=== PATIENT | male | born 1960 | race Caucasian/White ===

== ENCOUNTER 2020-06-01 09:32 | Emergency (ER) | payer BC ==
[2020-06-01 09:40] VITALS: BP 140/84; PULSE 88; TEMP 99.2; BMI 31.1
--- OUTSIDE RECORDS SUMMARY | 2020-06-01 09:40 | XMS ---
:1960 Author Organization [facility] Name Relationship Address Phone [employer] [facility] [place] [address] [address] [place] [address] Re-disclosure Warning The records that you are about to access may contain information from federally- assisted alcohol or drug abuse programs. If such information is present, then the following federally mandated warning applies: This information has been disclosed to you from records protected by federal confidentiality rules (42 CFR part 2). The federal rules prohibit you from making any further disclosure of this information unless further disclosure is expressly permitted by the written consent of the person to whom it pertains or as otherwise permitted by 42 CFR part 2. A general authorization for the release of medical or other information is NOT sufficient for this purpose. The Federal rules restrict any use of the information to criminally investigate or prosecute any alcohol or drug abuse patient.The records that you are about to access may contain highly sensitive health information, the redisclosure of which is protected by Article 27-F of the [facility] Public Health law. If you continue you may haveaccess to information: Regarding HIV / AIDS; Provided by facilities licensed or operated by the [facility] Office of Mental Health; or Provided by the [facility] Office for People With Developmental Disabilities. If such information is present, then the following [facility] mandated warning applies: This information has been disclosed to you from confidential records which are protected by state law. State law prohibits you from making any further disclosure of this information without the specific written consent of the person to whom it pertains, or as otherwise permitted by law. Any unauthorized further disclosure in violation of state law may result in a fine or [place] [facility] sentence or both. A general authorization for the release of medical or other information is NOT sufficient authorization for further disclosure. Insurance Providers Payer name Policy type / Policy ID Covered Covered libertarian's Policy Plan Coverage type libertarian ID relationship to [employer] Information [employer] PPO [id number] SP [id number] Results ID Date Data Source [id number] 12/31/2019 10:50:00 AM EDT [facility] Name Value Range Interpretation Description Data Sup porting Code Source(s) Document(s ) 2019 Novel [facility] Coronavirus RNA Interpretation Unspecified Specimen Qualitative UMAIR Probe Detection This lab was ordered by [facility] and reported by [facility]. ID Date Data Source [id number] 11/26/2019 12:00:00 AM EDT [facility] Name Value Range Interpretation Code Description Data Chantell rce(s) Supporting Document(s ) 2019-nCoV [facility] RNA XXX UMAIR+probe- Imp This lab was ordered by [facility] and reported by [employer] [facility] Procedure
--- NOTE | 2020-06-01 09:52 | PDOC ---
History of Present Illness - General Chief Complaint: Foreign Body (FB) Stated Complaint: COTTON FRAGMENT IN RIGHT EAR Time Seen by Provider: 06/01/20 09:41 History Source: Patient Exam Limitations: No Limitations - History of Present Illness Initial Comments: 06/01/20 09:46 60 yo M p/w foreign body sensation in his R ear. Was using a qtip to clean his ears this morning and when he pulled the qtip out of the R ear he noticed the cotton tip was missing. Denies ear pain. States sounds are a little dull on that side but otherwise hearing is intact. Denies drainage from the ear or bleeding. No other complaints. Past History - Medical History Allergies/Adverse Reactions: Allergies Allergy/AdvReac Type Severity Reaction Status Date / Time wheat Allergy Severe Nausea Verified 06/01/20 09:49 No Known Drug Allergies Allergy Verified 06/01/20 09:49 Home Medications: Ambulatory Orders Allopurinol [Zyloprim -] 300 mg PO DAILY 09/02/14 Lipase/Protease/Amylase [Pancrelipase 5,000 Dr Capsule -] 1 each PO TID 09/02/14 Amlodipine Besylate [Norvasc -] 10 mg PO DAILY 06/01/20 Colestipol HCl 1 gm PO BID 06/01/20 Ezetimibe [Zetia] 10 mg PO TUSA 06/01/20 Hydrochlorothiazide 12.5 mg PO MOFR 06/01/20 Icosapent Ethyl [Vascepa] 1 gm PO BID 06/01/20 Levothyroxine [Synthroid -] 150 mcg PO DAILY 06/01/20 Metformin HCl [Glucophage] 500 mg PO BID 06/01/20 Olmesartan Medoxomil [Benicar (Nf)] 40 mg PO DAILY 06/01/20 Pantoprazole Sodium [Protonix -] 40 mg PO DAILY 06/01/20 Cancer: Yes (MELANOMA) COPD: No Diabetes: Yes GI Disorders: Yes (GERD, IBS) HTN: Yes Hypercholesterolemia: Yes Thyroid Disease: Yes Other medical history: GOUT - Surgical History Abdominal Surgery: Yes (UMBILICAL HERNIA) Appendectomy: Yes - Psycho-Social/Smoking History Smoking History: Never smoked - Substance Abuse Hx (Audit-C & DAST Scrn) How often the patient has a drink containing alcohol: Never Score: In Men: 4 or > Positive; In Women: 3 or > Positive: 0 Screen Result (Pos requires Nsg. Audit-10AR): Negative In the last yr the pt used illegal drug/Rx for NonMed reason: No Score: Yes response is considered Positive: 0 Screen Result (Positive result requires Nsg. DAST-10): Negative Review of Systems - Review of Systems Able to Perform ROS?: Yes Comments:: 06/01/20 09:47 GENERAL/CONSTITUTIONAL: No fever or chills. No weakness. HEAD, EYES, EARS, NOSE AND THROAT: as per HPI CARDIOVASCULAR: No chest pain or shortness of breath. RESPIRATORY: No cough, wheezing, or hemoptysis. GASTROINTESTINAL: No nausea, vomiting, diarrhea or constipation. GENITOURINARY: No dysuria, frequency, or change in urination. MUSCULOSKELETAL: No joint or muscle swelling or pain. No neck or back pain. SKIN: No rash. NEUROLOGIC: No headache, vertigo, loss of consciousness, or change in strength/sensation. ENDOCRINE: No increased thirst. No abnormal weight change. HEMATOLOGIC/LYMPHATIC: No anemia, easy bleeding, or history of blood clots. ALLERGIC/IMMUNOLOGIC: No hives or skin allergy. *Physical Exam - Vital Signs Last Vital Signs Temp Pulse Resp BP Pulse Ox 99.2 F 88 16 140/84 99 06/01/20 09:35 06/01/20 09:35 06/01/20 09:35 06/01/20 09:35 06/01/20 09:35 - Physical Exam 06/01/20 09:48 GENERAL: Well appearing, in no acute distress HEENT: NCAT, conjunctiva not injected, L TM wnl, white foreign body in R auditory canal and unable to visualize TM on R NECK: Normal ROM, supple LUNGS: CTAB. Good air entry. No wheezes, No Rhonchi and no crackles HEART: RRR, + s1 s2 ABDOMEN: Soft, nontender, normoactive bowel sounds. No guarding, no rebound. No masses BACK: no midline or paraspinal tenderness. No CVA tenderness. EXTREMITIES: Warm and well perfused. FROM. No clubbing or cyanosis. NEUROLOGICAL: Aox3, Speech fluent, face symmetric. Sensation grossly intact to light touch. Ambulatory with steady gait. Strength intact. No focal deficits. SKIN: Warm, dry, normal turgor, no rashes or lesions noted. Medical Decision Making - Medical Decision Making 06/01/20 09:49 60 yo M with qtip on R auditory canal. Plan: -qtip removed with alligator forceps, inspection after removal shows absence of fb, TM wnl and intact, no bleeding or abrasions noted, hearing intact and patient reports complete resolution of symptoms -d/c with return precautions, recommend PMD f/u as needed, counseled on proper qtip use This clinical encounter is taking place during a federal and state health care emergency attributable to the novel Alfonso Virus pandemic. The Certified Surgical Technologist of the Department of Health and Human Services has declared, pursuant to the Public Health Service Act 319F-3 (42 U.S.C. 247d-6d), that a covered persons activities related to medical countermeasures against COVID-19 will be immune from liability under Federal and State law. Discharge - Discharge Information Problems reviewed: Yes Clinical Impression/Diagnosis: Foreign body of ear, right Qualifiers: Encounter type: initial encounter Qualified Code(s): T16.1XXA - Foreign body in right ear, initial encounter Condition: Improved Disposition: HOME - Admission No - Follow up/Referral Referrals: Narayan Villarreal MD [Primary Care Provider] - - Patient Discharge Instructions Patient Printed Discharge Instructions: DI for Removal of Foreign Body From Ear Additional Instructions: A qtip was removed from your ear. You should follow up with your PMD as needed. Return to the ED for new or worsening symptoms. - Post Discharge Activity
== END 2020-06-01 09:55 | disposition home or self-care (01) ==
LOC: FER 09:32
DX: T16.1XXA Foreign body in right ear, initial encounter (principal)
CPT/HCPCS: 99283-25

== ENCOUNTER 2022-03-08 05:10 | Day surgery (SDC) | payer BC ==
[2022-03-04 14:11] VITALS: BMI 29.8
[2022-03-08 06:22] VITALS: RESP 20; TEMP 97.8
[2022-03-08] MEDS ORDERED: PROPOFOL 20 ML ONE ×3 (07:33)
[2022-03-08] MEDS ORDERED: MIDAZOLAM HCL 2 MG/2 ML SINGLE DOSE VIAL ONE (07:33)
[2022-03-08] MEDS ORDERED: SUCCINYLCHOLINE CHLORIDE 200 MG/10 ML SYRINGE ONE (07:34)
[2022-03-08] MEDS ORDERED: KETOROLAC TROMETHAMINE 30 MG/1 ML VIAL ONE (08:19)
[2022-03-08 09:00] VITALS: BP 103/69; PULSE 65
== END 2022-03-08 10:14 | disposition home or self-care (01) ==
LOC: JASU-SURG 05:10
PROVIDERS: ATTEND Urology
PROC: 0TF3XZZ Fragmentation in Right Kidney Pelvis, External Approach (ICD-10-PCS; principal; 2022-03-08 08:07)
DX: N20.0 Calculus of kidney (principal)
CPT/HCPCS: 82962

== ENCOUNTER 2022-05-17 04:10 | Day surgery (SDC) | payer BC ==
[2022-05-13 14:25] VITALS: BMI 29.8
[2022-05-17 06:20] VITALS: RESP 20
[2022-05-17] MEDS ORDERED: PROPOFOL 20 ML ONE (08:02)
[2022-05-17] MEDS ORDERED: KETOROLAC TROMETHAMINE 30 MG/1 ML VIAL ONE (08:07)
[2022-05-17] MEDS ORDERED: ONDANSETRON 4 MG/2 ML VIAL ONE (08:07)
[2022-05-17 08:38] VITALS: TEMP 97.5
[2022-05-17 09:04] VITALS: BP 109/60; PULSE 70
[2022-05-17] MEDS ORDERED: ONDANSETRON 4 MG/2 ML VIAL IVPUSH PRN (15:28)
[2022-05-17] MEDS ORDERED: ACETAMINOPHEN 325 MG TABLET (FP) PO PRN (15:28)
[2022-05-17] MEDS ORDERED: LACTATED RINGERS SOLUTION 1,000 ML IV SCH (15:30)
== END 2022-05-17 10:07 | disposition home or self-care (01) ==
LOC: JASU-SURG 04:10
PROVIDERS: ATTEND Urology
PROC: 0TF4XZZ Fragmentation in Left Kidney Pelvis, External Approach (ICD-10-PCS; principal; 2022-05-17 08:00)
DX: N20.0 Calculus of kidney (principal)
CPT/HCPCS: 82962